=== PATIENT | female | born 1995 | race Asian ===

== ENCOUNTER 2017-02-17 16:36 | Emergency (ER) | payer OTHER ==
[2017-02-17 16:54] VITALS: BP 106/71
--- NOTE | 2017-02-17 18:22 | ED ---
Lower Extremity - HPI Summary HPI Summary: Pt here w/ Rt 3rd toe injury last night. Accidentally dropped her lap top on her toe - bruising, pain. Denies numbness, tingling, weakness here. No skin breakdown. Has not tried ice nor NSAID's - does not want to try anything for pain - here to be assessed for fx. - History of Current Complaint Chief Complaint: EDExtremityLower Stated Complaint: RIGHT MIDDLE TOE INJURY Time Seen by Provider: 02/17/17 17:30 Hx Obtained From: Patient Pain Intensity: 2 - Allergies/Home Medications Allergies/Adverse Reactions: Allergies Allergy/AdvReac Type Severity Reaction Status Date / Time No Known Allergies Allergy Verified 02/17/17 16:54 PMH/Surg Hx/FS Hx/Imm Hx Previously Healthy: Yes Endocrine/Hematology History: Denies: Hx Anticoagulant Therapy, Hx Blood Disorders - Immunization History Immunizations Up to Date: Yes Infectious Disease History: No Infectious Disease History: Denies: Traveled Outside the [place] in Last 30 Days - Family History Known Family History: Positive: None - Social History Occupation: Student Lives: Dormitory/Roommates Alcohol Use: None Hx Substance Use: No Substance Use Type: Reports: None Hx Tobacco Use: No Smoking Status (MU): Unknown if Ever Smoked Review of Systems Constitutional: Negative Positive: no symptoms reported Musculoskeletal: Other - see HPI Skin: Other - see HPI Neurological: Negative Psychological: Normal All Other Systems Reviewed And Are Negative: Yes Physical Exam Triage Information Reviewed: Yes Vital Signs On Initial Exam: Initial Vitals Temp Pulse Resp BP Pulse Ox 98.0 F 68 15 106/71 99 02/17/17 16:51 02/17/17 16:51 02/17/17 16:51 02/17/17 16:51 02/17/17 16:51 Vital Signs Reviewed: Yes Appearance: Positive: Well-Appearing, No Pain Distress, Well-Nourished Skin: Positive: Warm, Dry - Ecchymosis w/ superficial capillary injury over dorsal aspect of 3rd toe on Rt foot Head/Face: Positive: Normal Head/Face Inspection ENT: Positive: Hearing grossly normal Respiratory/Lung Sounds: Positive: Breath Sounds Present Cardiovascular: Positive: Pulses are Symmetrical in both Upper and Lower Extremities Musculoskeletal: Positive: Limited @ - pain w/ movement but can move, Pain @ - affected area TTP - no caroline edema or gross deformity Neurological: Positive: Normal, Sensory/Motor Intact, Alert, Oriented to Person Place, Time, CN Intact II-III Psychiatric: Positive: Normal Diagnostics - Vital Signs Vital Signs Temp Pulse Resp BP Pulse Ox 02/17/17 16:51 98.0 F 68 15 106/71 99 - Laboratory Lab Statement: Any lab studies that have been ordered have been reviewed, and results considered in the medical decision making process. Lower Extremity Course/Dx - Diagnoses Provider Diagnoses: Contusion of toe of right foot Discharge - Discharge Plan Condition: Stable Disposition: HOME Patient Education Materials: Foot Contusion (ED) Referrals: [facility] [Primary Care Provider] - Additional Instructions: Rest, ice, elevate Wear stiff soled shoe to reduce movement, causing pain, until healed You may take ibuprofen with food for pain Follow-up with [facility] if persists or worsens
--- NOTE | 2017-02-17 18:23 | RAD ---
INDICATION: The patient dropped a laptop on her third toe TECHNIQUE: 3 views of the third small toe were obtained. FINDINGS: The visualized bones are normal alignment. Joint spaces appear maintained. No fracture is seen. IMPRESSION: NO EVIDENCE FOR FRACTURE. IF THE PATIENT'S SYMPTOMS PERSIST RECOMMEND FOLLOW-UP IMAGING.
== END 2017-02-17 18:49 | disposition home or self-care (01) ==
LOC: ED 16:36
DX: S90.121A Contusion of right lesser toe(s) without damage to nail, initial encounter (principal); W20.8XXA Other cause of strike by thrown, projected or falling object, initial encounter; Y92.9 Unspecified place or not applicable
CPT/HCPCS: 99281

== ENCOUNTER 2019-07-15 15:56 | Emergency (ER) | payer OTHER ==
[2019-07-15] MEDS ORDERED: Ibuprofen TAB* 400 MG PO ONE (18:12)
--- NOTE | 2019-07-15 18:12 | ED ---
HPI Chest Pain - HPI Summary HPI Summary: The patient is a 24 year-old female presenting to [facility] with a chief complaint of right anterior chest pain onset two days ago. She reports that she woke up with dull pain, but then it continued to worsen. She describes the pain as a sharp sensation that does not move, rated 7/10 in severity now. The pain is positional, as stretching, deep breathing, and cough aggravate the pain. She denies any fevers, shortness of breath, cough, nausea, vomiting, or calf pain or swelling. She has not used any medications for treatment prior to arrival. No history of blood clots, no oral contraceptives. No known injury to the chest. No recent illnesses. No past medical history. Current smoker, weekly EtOH , no substance use. Medications reviewed. Allergies noted. - History of Current Complaint Chief Complaint: EDChestWallPain Time Seen by Provider: 07/15/19 18:04 Hx Obtained From: Patient Onset/Duration: Started Days Ago, Still Present Timing: Constant Initial Severity: Mild Current Severity: Moderate Pain Intensity: 7 Pain Scale Used: 0-10 Numeric Chest Pain Location: Right Anterior Chest Pain Radiates: No Character: Sharp/Stabbing Aggravating Factor(s): Position, Deep Breaths, Other: - cough Alleviating Factor(s): Nothing Associated Signs and Symptoms: Positive: Chest Pain. Negative: Shortness of Breath, Fever, Nausea, Cough, Calf Pain/Swelling, Vomiting - Allergy/Home Medications Allergies/Adverse Reactions: Allergies Allergy/AdvReac Type Severity Reaction Status Date / Time No Known Allergies Allergy Verified 07/15/19 18:40 Home Medications: Home Medications NK [No Home Medications Reported] 07/15/19 [History Confirmed 07/15/19] PMH/Surg Hx/FS Hx/Imm Hx Endocrine/Hematology History: Denies: Hx Anticoagulant Therapy, Hx Blood Disorders Respiratory History: Denies: Hx Asthma Sensory History: Denies: Hx Legally Blind, Hx Deafness Opthamlomology History: Denies: Hx Legally Blind EENT History: Denies: Hx Deafness - Surgical History Surgical History: None Surgery Procedure, Year, and Place: none Infectious Disease History: No Infectious Disease History: Denies: Traveled Outside the [place] in Last 30 Days - Family History Known Family History: Negative: Cardiac Disease, Hypertension, Diabetes - Social History Alcohol Use: Weekly Hx Substance Use: No Substance Use Type: Reports: None Hx Tobacco Use: No Smoking Status (MU): Current Every Day Smoker Type: eCigarettes Review of Systems Negative: Fever Positive: Chest Pain Negative: Shortness Of Breath, Cough Negative: Vomiting, Nausea Negative: Myalgia - calf, Edema All Other Systems Reviewed And Are Negative: Yes Physical Exam - Summary Physical Exam Summary: Constitutional: Well-developed, Well-nourished, Alert. (-) Distressed Skin: Warm, Dry HENT: Normocephalic; Atraumatic Eyes: Conjunctiva normal Neck: Musculoskeletal ROM normal neck. (-) JVD, (-) Stridor, (-) Tracheal deviation Cardio: Rhythm regular, rate normal, Heart sounds normal; Intact distal pulses; The pedal pulses are 2+ and symmetric. Radial pulses are 2+ and symmetric. (-) Murmur Pulmonary/Chest wall: Tenderness in the right sternal border, Chest wall tenderness, Effort normal. (-) Respiratory distress, (-) Wheezes, (-) Rales Abd: Soft, (-) tenderness, (-) Distension, (-) Guarding, (-) Rebound Musculoskeletal: (-) Edema Lymph: (-) Cervical adenopathy Neuro: Alert, Oriented x3 Psych: Mood and affect Normal Triage Information Reviewed: Yes Vital Signs On Initial Exam: Initial Vitals Temp Pulse Resp BP Pulse Ox 97.8 F 80 16 103/77 98 07/15/19 16:09 07/15/19 16:09 07/15/19 16:09 07/15/19 16:09 07/15/19 16:09 Vital Signs Reviewed: Yes Procedures - Sedation Patient Received Moderate/Deep Sedation with Procedure: No Diagnostics - Vital Signs Vital Signs Temp Pulse Resp BP Pulse Ox 07/15/19 17:55 98.5 F 74 18 110/80 100 07/15/19 16:09 97.8 F 80 16 103/77 98 - Laboratory Result Diagrams: 07/15/19 18:11 07/15/19 18:11 Lab Statement: Any lab studies that have been ordered have been reviewed, and results considered in the medical decision making process. - Radiology CXR Radiology Interpretation Completed By: ED Physician Summary of Radiographic Findings: No acute disease. ED physician has reviewed and interpreted this report. Pending official read. - EKG 1601 Cardiac Rate: NL - 68 BPM EKG Rhythm: Sinus Rhythm Summary of EKG Findings: EKG at 1601 reveals normal sinus rhythm at 68 BPM, isolated T wave inversion in lead III. Dr. Amezcua has reviewed and interpreted this EKG. Re-Evaluation - Re-Evaluation First Eval Re-Evaluation Time: 18:45 Comment: We discussed results and plan for discharge home. Chest Pain Course/Dx - Course Course Of Treatment: Patient is a 24 year-old female presenting with positional right anterior chest pain onset two days ago with gradual worsening, but she is otherwise asymptomatic and does not have any previous cardiac or respiratory history. Current smoker. Physical exam significant for tenderness in the right sternal border and chest wall tenderness. Patient administered Motrin. Blood work obtained, within normal limits. Negative troponin. An EKG at 1601 reveals normal sinus rhythm at 68 BPM, isolated T wave inversion in lead III. CXR is negative, per my interpretation. Patient is safe for discharge. Patient agreeable with plan. - Diagnoses Provider Diagnoses: Costochondritis Discharge ED - Sign-Out/Discharge Documenting (check all that apply): Patient Departure - Patient will be discharged home. - Discharge Plan Condition: Stable Disposition: HOME Patient Education Materials: Costochondritis (ED) [facility] - 3 Days Additional Instructions: Follow up with your primary care provider in 2-3 days. Return to the emergency department for any new or worsening symptoms. - Attestation Statements Document Initiated by Ariela: Yes Documenting Scribe: Kristy Wakefield Provider For Whom Ariela is Documenting (Include Credential): DO Susi Chenibe Attestation: Kristy Donahue scribed for Dr. Bret Amezcua DO on 07/15/19 at 1850. Status of Scribe Document: Ready
[2019-07-15 18:19] LABS: ABS Basophils 0.1 10^3/ul (0-0.2); ABS Eosinophils 0.2 10^3/ul (0-0.6); ABS Lymphocytes 2.5 10^3/ul (1.0-4.8); ABS Monocytes 0.5 10^3/ul (0-0.8); ABS Neutrophils 5.2 10^3/ul (1.5-7.7); Eosinophil % 1.8 %; Hematocrit 40 % (35-47); Hemoglobin 13.8 g/dL (12.0-16.0); Lymphocyte % 29.8 %; Mean Corpuscular HGB Conc 34 g/dL (31-36); Mean Corpuscular Hemoglobin 32 pg (27-31); Mean Corpuscular Volume 92 fL (80-97); Nucleated Red Blood Cells % 0.1; Platelet Count 277 10^3/uL (150-450); Red Blood Count 4.36 10^6 /uL (3.70-4.87); Red Cell Distribution Width 13 % (10-15); White Blood Count 8.6 10^3/uL (3.5-10.8)
[2019-07-15 18:36] LABS: Albumin 4.6 g/dL (3.2-5.2); Albumin/Globulin Ratio 1.4 (1-3); BUN/Creatinine Ratio 19.7 (8-20); Calcium 9.1 mg/dL (8.6-10.3); EGFR African American 124.6 (>60); EGFR Non-African American 102.9 (>60); Globulin 3.2 g/dL (2-4); Potassium 3.5 mmol/L (3.5-5.0); Total Bilirubin 0.6 mg/dL (0.2-1.0); Total Protein 7.8 g/dL (6.4-8.9)
[2019-07-15 18:42] LABS: INR 1.09 (0.82-1.09)
[2019-07-15 19:07] VITALS: BP 108/68
== END 2019-07-15 19:06 | disposition home or self-care (01) ==
LOC: ED 15:56
DX: M94.0 Chondrocostal junction syndrome [Tietze] (principal); F17.290 Nicotine dependence, other tobacco product, uncomplicated
CPT/HCPCS: 36415; 71045; 80053; 84484; 85025; 85610; 99282; A9270-GY

== ENCOUNTER 2019-09-11 15:40 | Emergency (ER) | payer OTHER ==
--- NOTE | 2019-09-11 16:51 | UC ---
HPI Febrile Illness - HPI Summary HPI Summary: 24-year-old female comes in with a chief complaint of fevers for 12 days. Initially the patient had a sore throat headache and some nausea. No longer has a sore throat now. Has some rhinorrhea but it's minimal denies any sinus pressure. No cough or shortness of breath. Several days after her symptoms started she was seen at [facility] where she had a negative flu and negative Covid. Today she had blood work done and had a white blood cell count of 19,000 with 74% neutrophils, no blasts, 16% lymphocytes, 9% monocytes and 1% eosinophils. She's not had a strep test for urinary sample obtained. In the morning using the fevers low grade around 100 as the day goes on she reports that it goes up to 101 or 102. Did report she had a fever as high as 104 during the course of illness. No complaint of any neck stiffness. Been taking Tylenol which does help with the fever. Denies any burning with urination or abdominal symptoms. Did have some low back pain initially with the illness. No known tick bites or rashes. - History of Current Complaint Chief Complaint: UCGeneralIllness Time Seen by Provider: 09/11/19 16:10 Hx Last Menstrual Period: Pain Intensity: 0 - Allergy/Home Medications Allergies/Adverse Reactions: Allergies Allergy/AdvReac Type Severity Reaction Status Date / Time No Known Allergies Allergy Verified 09/11/19 16:19 Home Medications: Home Medications Acetaminophen TAB* [Tylenol TAB*] 975 mg PO Q6H PRN 09/11/19 [History Confirmed 09/11/19] Cefdinir [Cefdinir 300 MG CAP] 300 mg PO BID #18 capsule 09/11/19 [Rx] PMH/Surg Hx/FS Hx/Imm Hx Previously Healthy: Yes Other History Of: Negative For: Anticoagulant Therapy - Surgical History Surgical History: None Surgery Procedure, Year, and Place: none - Family History Known Family History: Positive: None Negative: Cardiac Disease, Hypertension, Diabetes - Social History Alcohol Use: Weekly Substance Use Type: None Smoking Status (MU): Former Smoker Type: eCigaretamika Review of Systems All Other Systems Reviewed And Are Negative: Yes Constitutional: Positive: Fever, Other - SEE HPI Skin: Positive: Negative Eyes: Positive: Negative ENT: Positive: Sore Throat, Nasal Discharge. Negative: Ear Ache Respiratory: Positive: Negative Cardiovascular: Positive: Negative Gastrointestinal: Positive: Negative Genitourinary: Positive: Negative Motor: Positive: Negative Neurovascular: Positive: Negative Musculoskeletal: Positive: Negative Neurological/Mental Status: Positive: Headache Psychological: Positive: Negative Is Patient Immunocompromised?: No Physical Exam Triage Information Reviewed: Yes Appearance: Well-Appearing, No Pain Distress, Well-Nourished Vital Signs Reviewed: Yes Eye Exam: Normal Eyes: Positive: Conjunctiva Clear ENT: Positive: Pharynx normal Neck: Positive: Supple Respiratory: Positive: Lungs clear, Normal breath sounds, No respiratory distress Cardiovascular: Positive: RRR Musculoskeletal: Positive: Strength Intact, ROM Intact Neurological: Positive: Alert, Muscle Tone Normal Psychological: Positive: Age Appropriate Behavior Skin Exam: Normal Course/Dx - Course Course Of Treatment: Patient is nontoxic appearing here in clinic. Vital signs are normal with the exception of a slightly elevated heart rate of 106. No stiff neck no headache at this time. Strep was negative here in clinic. Urine showed 2+ white blood cells. Influenza and Covid were both negative on September 04, 2019 after the patient had been having symptoms for several days. Patient has no cough or shortness of breath. I discussed the results and the patient's symptoms with the patient. The plan is to treat for UTI with Omnicef 300 milligrams by mouth twice a day. Urine culture results are pending. Patient will follow-up with [facility] she is to get reevaluated if worse or not improving. - Diagnoses Provider Diagnosis: Pyuria, Fever Discharge ED - Sign-Out/Discharge Documenting (check all that apply): Patient Departure All imaging exams completed and their final reports reviewed: No Studies - Discharge Plan Condition: Stable Disposition: HOME Prescriptions: Cefdinir [Cefdinir 300 MG CAP] 300 mg PO BID #18 capsule Patient Education Materials: Urinary Tract Infection in Women (ED), Fever in Adults (ED) Referrals: [facility] [Provider Group] Additional Instructions: FOLLOW UP WITH YOUR DOCTOR IF NOT COMPLETELY IMPROVED. GET REEVALUATED IF NOT IMPROVED OR WORSE OR ANY QUESTIONS OR CONCERNS. - Billing Disposition and Condition Condition: STABLE Disposition: Home
[2019-09-11 16:54] VITALS: BP 108/77
[2019-09-11] MEDS ORDERED: Cefdinir cap* 300 MG CAP PO ONE (17:01)
== END 2019-09-11 17:30 | disposition home or self-care (01) ==
LOC: UCEAST 15:40
DX: R82.81 Pyuria (principal); R50.9 Fever, unspecified; Z87.891 Personal history of nicotine dependence
CPT/HCPCS: 81003; 87077; 87086; 87186; 87651; 99212; A9270-GY; G0463